=== PATIENT | male | born 2000 | race Two or more races ===

== ENCOUNTER 2023-09-16 22:50 | Emergency (ER) | payer OTHER ==
[2023-09-16 23:12] VITALS: O2SAT 100
--- NOTE | 2023-09-17 00:27 | ED Physician Documentation ---
PD HPI LOWER EXT INJURY - Stated complaint Stated Complaint: L LEG INJ - Chief complaint Chief Complaint: Trauma Ext - History obtained from History obtained from: Patient - Additional information Additional information: HPI from patient. Patient c/o left foot swelling and pain, sudden onset tonight at approximately 10:30 PM when he slipped in the shower at home. Patient sustained injury 08/12/23 that resulted in achilles rupture for which he underwent surgical repair 08/16/23 (Earnestine Alvarez). He has been [facility] and in physical therapy. With tonight's injury, he felt popping sensation with the sudden onset of pain that feels very similar to his initial injury 08/11, both in quality of pain and location. Denies numbness. Unsure if weakness as any ROM at ankle significantly worsens the pain. PD PAST MEDICAL HISTORY - Past Medical History Past Medical History: Yes Musculoskeletal: Other Other Past Medical History: L acilles tendon ruptured 08/12/2023 - Past Surgical History Past Surgical History: Yes Ortho: Other - Present Medications Home Medications: Ambulatory Orders Medication Instructions Recorded Confirmed Aspirin [Jeannine] 1 tab PO DAILY 09/16/23 09/16/23 - Allergies Allergies/Adverse Reactions: Allergies Allergy/AdvReac Type Severity Reaction Status Date / Time No Known Drug Allergies Allergy Verified 09/16/23 23:11 - Social History Does the pt smoke?: No Smoking Status: Never smoker Does the pt drink ETOH?: Yes ETOH Use: Beer Does the pt have substance abuse?: No - Immunizations Immunizations are current?: Yes - POLST Patient has POLST: No PD ED PE NORMAL - Vitals Vital signs reviewed: Yes - General General: Alert and oriented X 3, No acute distress, Well developed/nourished PD ED PE EXPANDED - Extremities Extremities: Limited ROM (very limited dorsi/plantarflexion; unclear if this is mechanical or due to the pain), Other (swelling, ecchymosis left hindfoot. scant dried blood from trivial/superficial defects along distal surgical incision site which is otherwise intact. no active bleeding, no wound dehiscence) Results - Vitals Vitals: Vital Signs - 24 hr 09/16/23 09/17/23 23:05 00:56 Temperature 36.2 C L 36.9 C Heart Rate 75 73 Respiratory 16 14 Rate Blood Pressure 131/69 H 117/61 O2 Saturation 100 100 Oxygen O2 Source Room air PD Medical Decision Making - ED course Complexity details: considered differential, d/w patient ED course: Patient underwent surgical repair of left achilles tendon rupture last month, presents due to reinjury of same area. Exam is limited due to significant exacerbation of pain with palpation and other manipulations such as attempt at Peters test. I attempted the Peters test but cannot confidently say if the result is positive or negative; again, the extent of pain elicited with any movement and manipulation significantly limited the exam. More importantly, the patient will need reevaluation in any event. Short-term reexamination by his PCP and/or surgeon will be facilitated by anticipated decrease in pain and swelling by the time he is reevaluated. No emergent imaging indicated. Patient has his crutches with him and he says he has splints at home that were specifically being used for this injury and thus no splinting is applied/performed in ED at this time (I advised him to reapply the splint and/or boot he has at home). We discussed analgesia; he says he has adequate supply of prescribed pain medication at home. Return precautions reviewed. He understands that he needs to contact his surgeon in the morning to arrange for immediate follow- up/reevaluation; I advised him that he can also seek follow up with PCP if they can see him sooner. Departure - Departure Disposition: 01 Home, Self Care Clinical Impression: Left Achilles tendinitis Condition: Good Instructions: ED Tendon Rupture Achilles Comments: As we discussed, there are no tests from the emergency standpoint that can defin itively determine whether or not you have re-injured/re-ruptured your Achilles tendon. Certainly, your description of the injury are suggestive of tendon rupture/re-rupture. You should resume non-weightbearing using the crutches, and resume all-day use of your splint on the left lower extremity. Contact your orthopedic surgeon when their office opens in the morning to arrange for immediate follow-up/reevaluation. Discharge Date/Time: 09/17/23 00:55
[2023-09-17 01:02] VITALS: BP 117/61
== END 2023-09-17 00:55 | disposition home or self-care (01) ==
LOC: ED 22:50
DX: M76.62 Achilles tendinitis, left leg (principal); Z79.82 Long term (current) use of aspirin
CPT/HCPCS: 99282; 99283